=== PATIENT | female | born 1935 | race Two or more races ===

== ENCOUNTER → 2019-05-01 | Outpatient (CLI) | payer MEDICARE, MEDICAID ==
[~2019-05-01] MED LIST: ANAS1TAB7 PO; CLO01T PO; CLOP75TA41 PO; DIL60T PO; DILT40TA PO; DONE10TA40 PO; FENO5TAB PO; FURO20TA3 PO; HYDR-4683 PO; LATA0.0020 EACHEYE; LORA1TAB12 PO; METO-631 PO; MULTTAB61 OR; OMEP20TA PO; PAR20T PO; POM PO; RIVA10TA PO; SENN-58 PO; SIMV10TA73 PO; VALS1TAB57 PO; VANC250PO GT
[2019-05-01 17:17] LABS: Urine Bacteria NONE SEEN /hpf (None Seen); Urine Blood TRACE /uL (Negative); Urine Specific Gravity 1.009 (1.001-1.035); Urine WBC 352 /hpf (0 - 5); Urine WBC Clumps PRESENT /hpf (None Seen)
== END | disposition home or self-care (01) ==
LOC: LAB 16:45
PROVIDERS: ATTEND Specialist
DX: A04.72 Enterocolitis due to Clostridium difficile, not specified as recurrent (principal); I10 Essential (primary) hypertension; Z87.440 Personal history of urinary (tract) infections
CPT/HCPCS: 81001; 87493

== ENCOUNTER 2020-11-26 20:56 | Inpatient (IN) | payer MEDICARE, MEDICAID ==
[~2020-11-26] VITALS: Ht 165.1 cm; Wt 88.0 kg
[~2020-11-26 20:56] MED LIST changes: -CLOP75TA41 PO; +CLOP75TA70 PO; -DONE10TA40 PO; +DONE1TAB88 PO; -HYDR-4683 PO; +HYDR-4833 PO; -LORA1TAB12 PO; +LORA1TAB23 PO; +MULT-1018 OR; -MULTTAB61 OR; +SIMV10TA2 PO; -SIMV10TA73 PO
[2020-11-26 21:46] VITALS: BP 159/83
[2020-11-26] MEDS ORDERED: LORazepam 0.5 MG TAB PO PRN (22:00)
[2020-11-26] MEDS ORDERED: SOD CHL 0.45% 1,000 ML IV SCH (22:00)
[2020-11-26] MEDS ORDERED: IOHEXOL 350 MG/ML 100ML IJ ONE (22:24)
[2020-11-26 22:59] LABS: Basophils # (auto) 0 10 ^3/uL (0-0.2); Basophils % (auto) 0.2 % (0.0-2.0); Eosinophils # (auto) 0.2 10 ^3/uL (0-0.8); Eosinophils % (auto) 2.4 % (0.0-7.0); Hematocrit 34.9 % (36.0-46.0); Hemoglobin 11.8 g/dL (12.2-16.2); Lymphocytes # (auto) 1.9 10 ^3/uL (0.4-5.4); Lymphocytes % (auto) 21.6 % (10.0-50.0); Mean Corpuscular Hemoglobin 31.9 pg (28.0-32.0); Mean Corpuscular Hgb Conc. 33.8 g/dL (32.0-36.0); Mean Corpuscular Volume 94.3 fL (80.0-100.0); Monocytes # (auto) 0.6 10 ^3/uL (0-1.3); Monocytes % (auto) 7.5 % (0.0-12.0); Neutrophils # (auto) 5.9 10 ^3/uL (1.6-8.6); Neutrophils % (auto) 68.3 % (37.0-80.0); Nucleated Red Blood Cells % 0.1 %; Platelet Count (auto) 188 10^3/uL (140-450); Red Cell Distribution Width 14.9 % (11.8-14.3); White Blood Cell 8.7 10^3/uL (4.4-10.8)
[2020-11-26] MEDS ORDERED: PANT40TA2 PO (23:03)
[2020-11-26] MEDS ORDERED: SENN-199 PO (23:03)
[2020-11-26] MEDS ORDERED: TRAZ-181 PO (23:03)
[2020-11-26] MEDS ORDERED: VALS160T53 PO (23:03)
[2020-11-26] MEDS ORDERED: OXY10CRT PO (23:03)
[2020-11-26] MEDS ORDERED: SIMV-8 PO (23:03)
[2020-11-26] MEDS ORDERED: FENO145T27 PO (23:03)
[2020-11-26] MEDS ORDERED: ASPI1TAB19 PO (23:03)
[2020-11-26] MEDS ORDERED: HYDR-4798 PO (23:03)
[2020-11-26] MEDS ORDERED: CLOP75TA28 PO (23:03)
[2020-11-26] MEDS ORDERED: CARV6.2551 PO (23:03)
[2020-11-26 23:07] VITALS: BP 159/83
[2020-11-26 23:20] LABS: Albumin 3.3 g/dL (3.4-5.0); Anion Gap 4 (5-15); Blood Urea Nitrogen 34 mg/dL (7-18); Calcium 8.5 mg/dL (8.5-10.1); Carbon Dioxide 25 mmol/L (21-32); Chloride 111 mmol/L (98-107); Glucose 140 mg/dL (74-106); Potassium 4.6 mmol/L (3.5-5.1); Sodium 140 mmol/L (136-145)
[2020-11-26 23:26] LABS: Alanine Aminotransferase 14 U/L (13-56); Alkaline Phosphatase 77 U/L (45-117); Aspartate Aminotransferase 16 U/L (15-37); BUN/Creatinine Ratio 20.5; Bilirubin, Total 0.2 mg/dL (0.2-1.0); GFR African American 38 mL/min; GFR Non-African American 31 mL/min; Total Protein 7.4 g/dL (6.4-8.2)
[2020-11-26 23:57] VITALS: BP 144/66
[2020-11-27] MEDS ORDERED: SENNA 8.6 MG TAB PO PRN
[2020-11-27] MEDS ORDERED: oxyCODONE ER 10 MG TAB PO PRN
[2020-11-27] MEDS ORDERED: ACETAMINOPHEN 500 MG TAB PO PRN
[2020-11-27] MEDS ORDERED: HYDROmorphone HCL 2 MG/ML VL IV PRN
[2020-11-27] MEDS ORDERED: ENOXAPARIN SOD 60 MG/0.6 ML SYRINGE SC ONE
[2020-11-27] MEDS ORDERED: HYDROcodone-ACET 10/325MG TAB PO PRN
[2020-11-27] MEDS ORDERED: SOD CHL 0.45% 1,000 ML IV SCH (00:45)
[2020-11-27] MEDS ORDERED: MORPHINE SULF INJ 2 MG/ML SYRINGE 1ML IV PRN ×2 (01:00→10:00)
[2020-11-27 05:00] VITALS: BP 139/60
[2020-11-27] MEDS: VALSARTAN 80 MG TAB PO SCH ×2 (06:30→18:00)
[2020-11-27] MEDS ORDERED: OMNIPAQUE ORAL SOLN 500ml 12mg/ml PO ONE (07:37)
[2020-11-27 09:00] VITALS: BP 158/72
[2020-11-27] MEDS ORDERED: NITROGLYCERIN 0.4 MG SL TAB SL PRN (10:00)
[2020-11-27] MEDS ORDERED: [UNRECOGNIZED DRUG - OTHER] PO SCH (10:00)
[2020-11-27] MEDS: PANTOPRAZOLE 40 MG TAB PO SCH (10:00)
[2020-11-27] MEDS: dilTIAZem HCL 60 MG TAB PO SCH ×2 (10:00→21:52)
[2020-11-27] MEDS: PARoxetine 20 MG TAB PO SCH (10:00)
[2020-11-27] MEDS: ARIMIDEX 1 MG PO SCH (10:00)
[2020-11-27] MEDS ORDERED: DILTIAZEM HCL 30 MG PO SCH (10:00)
[2020-11-27] MEDS: CARVEDILOL 3.125 MG PO SCH ×2 (10:33→21:48)
[2020-11-27] MEDS: MULTIPLE VITAMIN TAB PO SCH (10:33)
[2020-11-27] MEDS: CLOPIDOGREL BISULFATE 75 MG TAB PO SCH (10:36)
[2020-11-27] MEDS: cloNIDine HCL 0.1 MG TAB PO SCH ×2 (10:36→21:49)
[2020-11-27] MEDS ORDERED: FENOFIBRATE PO SCH (12:00)
[2020-11-27 13:00] VITALS: BP 119/59
[2020-11-27] MEDS: SOD CHL 0.45% 1,000 ML IV SCH (14:15)
[2020-11-27] MEDS ORDERED: ENOXAPARIN SOD 40 MG/0.4 ML SYRINGE SC SCH (14:15)
[2020-11-27] MEDS ORDERED: LORazepam 0.5 MG TAB PO SCH (14:15)
[2020-11-27 14:46] LABS: BUN/Creatinine Ratio 23.9; Calcium 8.4 mg/dL (8.5-10.1)
[2020-11-27 17:00] VITALS: BP 134/68
[2020-11-27] MEDS: PATIENTS OWN MEDICATION PO SCH (17:30)
[2020-11-27] MEDS: ATORVASTATIN 20 MG TAB PO SCH (18:00)
[2020-11-27] MEDS: LORazepam 0.5 MG TAB PO SCH ×2 (21:50→22:00)
[2020-11-27] MEDS: LATANOPROST 0.005 % OPTH(EYE) SOL 2.5ML EACHEYE SCH (21:51)
[2020-11-27] MEDS: ENOXAPARIN SOD 40 MG/0.4 ML SYRINGE SC SCH (21:52)
[2020-11-27] MEDS: ASPirin-EC 81 mg tab PO SCH (21:53)
[2020-11-27 22:00] VITALS: BP 162/71
[2020-11-27 22:06] LABS: Urine Bacteria NONE SEEN /hpf (None Seen); Urine Blood Negative /uL (Negative); Urine Hyaline Cast FEW /lpf (0 - 2); Urine Specific Gravity 1.017 (1.001-1.035); Urine WBC <1 /hpf (0 - 5)
[2020-11-28 05:00] VITALS: BP 154/66
[2020-11-28 05:39] LABS: Calcium 8.6 mg/dL (8.5-10.1); Potassium 4.2 mmol/L (3.5-5.1)
[2020-11-28 05:40] LABS: BUN/Creatinine Ratio 27.4
[2020-11-28] MEDS: LORazepam 0.5 MG TAB PO SCH ×3 (06:01→22:30)
[2020-11-28] MEDS: VALSARTAN 80 MG TAB PO SCH ×2 (06:02→18:00)
[2020-11-28] MEDS ORDERED: ADENOSINE 75 MG in GIVE UN-DILUTED 0 ML IV STA (08:33)
[2020-11-28] MEDS ORDERED: IODIXANOL 320MG/ML 100ML BTL IV ONE (08:44)
[2020-11-28 09:00] VITALS: BP 131/53
[2020-11-28] MEDS: CARVEDILOL 3.125 MG PO SCH ×2 (10:00→22:34)
[2020-11-28] MEDS: SOD CHL 0.45% 1,000 ML IV SCH ×2 (10:00→22:55)
[2020-11-28] MEDS: PANTOPRAZOLE 40 MG TAB PO SCH (10:00)
[2020-11-28] MEDS: dilTIAZem HCL 60 MG TAB PO SCH ×2 (10:00→22:33)
[2020-11-28] MEDS: PARoxetine 20 MG TAB PO SCH (10:00)
[2020-11-28] MEDS: CLOPIDOGREL BISULFATE 75 MG TAB PO SCH (10:00)
[2020-11-28] MEDS: cloNIDine HCL 0.1 MG TAB PO SCH ×2 (10:00→22:34)
[2020-11-28] MEDS: ARIMIDEX 1 MG PO SCH (10:00)
[2020-11-28] MEDS: ENOXAPARIN SOD 40 MG/0.4 ML SYRINGE SC SCH (10:00)
[2020-11-28] MEDS: MULTIPLE VITAMIN TAB PO SCH (10:00)
[2020-11-28 13:00] VITALS: BP 155/88
[2020-11-28 17:00] VITALS: BP 151/64
[2020-11-28] MEDS: PATIENTS OWN MEDICATION PO SCH (17:00)
[2020-11-28] MEDS: ATORVASTATIN 20 MG TAB PO SCH (18:00)
[2020-11-28 22:00] VITALS: BP 127/63
[2020-11-28] MEDS: LATANOPROST 0.005 % OPTH(EYE) SOL 2.5ML EACHEYE SCH (22:30)
[2020-11-28] MEDS: ASPirin-EC 81 mg tab PO SCH (22:34)
[2020-11-29 05:00] VITALS: BP 112/47
[2020-11-29] MEDS: LORazepam 0.5 MG TAB PO SCH ×2 (05:45→09:26)
[2020-11-29] MEDS: VALSARTAN 80 MG TAB PO SCH ×2 (06:29→18:00)
[2020-11-29 09:00] VITALS: BP 154/69
[2020-11-29] MEDS: dilTIAZem HCL 60 MG TAB PO SCH (09:20)
[2020-11-29] MEDS: CARVEDILOL 3.125 MG PO SCH (09:20)
[2020-11-29] MEDS: PARoxetine 20 MG TAB PO SCH (09:21)
[2020-11-29] MEDS: CLOPIDOGREL BISULFATE 75 MG TAB PO SCH (09:21)
[2020-11-29] MEDS: PANTOPRAZOLE 40 MG TAB PO SCH (09:21)
[2020-11-29] MEDS: MULTIPLE VITAMIN TAB PO SCH (09:21)
[2020-11-29] MEDS: cloNIDine HCL 0.1 MG TAB PO SCH (10:00)
[2020-11-29] MEDS ORDERED: ENOXAPARIN SOD 40 MG/0.4 ML SYRINGE SC SCH (10:00)
[2020-11-29] MEDS: ARIMIDEX 1 MG PO SCH (10:00)
[2020-11-29 13:00] VITALS: BP 144/74
[2020-11-29] MEDS: SOD CHL 0.45% 1,000 ML IV SCH (16:45)
[2020-11-29 17:00] VITALS: BP 161/75
[2020-11-29] MEDS: ATORVASTATIN 20 MG TAB PO SCH (17:18)
[2020-11-29] MEDS: PATIENTS OWN MEDICATION PO SCH (17:18)
[2020-11-29 18:37] LABS: BUN/Creatinine Ratio 19.3; Calcium 8.7 mg/dL (8.5-10.1); Potassium 4.4 mmol/L (3.5-5.1)
[2020-11-29 22:00] VITALS: BP 162/82
== END 2020-11-29 22:40 | disposition home or self-care (01) | DRG 303 ==
LOC: TELE-CENTR 20:56
PROVIDERS: ADMIT Specialist; ATTEND Specialist
PROC: 05HD33Z Insertion of Infusion Device into Right Cephalic Vein, Percutaneous Approach (ICD-10-PCS; principal; 2020-11-28)
DX: I25.119 Atherosclerotic heart disease of native coronary artery with unspecified angina pectoris (principal); N17.9 Acute kidney failure, unspecified; E66.01 Morbid (severe) obesity due to excess calories; Z20.822 Contact with and (suspected) exposure to COVID-19; E78.00 Pure hypercholesterolemia, unspecified; E11.9 Type 2 diabetes mellitus without complications; E86.1 Hypovolemia; E87.8 Other disorders of electrolyte and fluid balance, not elsewhere classified; R32 Unspecified urinary incontinence; Z79.84 Long term (current) use of oral hypoglycemic drugs; Z82.49 Family history of ischemic heart disease and other diseases of the circulatory system; Z85.3 Personal history of malignant neoplasm of breast; Z86.711 Personal history of pulmonary embolism; Z87.440 Personal history of urinary (tract) infections; Z87.891 Personal history of nicotine dependence; Z98.61 Coronary angioplasty status; Z68.28 Body mass index [BMI] 28.0-28.9, adult; I11.0 Hypertensive heart disease with heart failure; N18.9 Chronic kidney disease, unspecified
CPT/HCPCS: 36415; 71045; 71250; 71275; 74176; 78452; 80048; 80053; 80061; 81001; 82150; 83036; 84484; 85025; 87426; 93017; G0378; J0153; Q9967

== ENCOUNTER 2021-01-15 19:16 | Inpatient (IN) | payer MEDICARE, MEDICAID ==
[~2021-01-15] VITALS: Ht 162.6 cm; Wt 79.8 kg
[~2021-01-15 19:16] MED LIST changes: +CARV6.2551 PO; +CLOP75TA28 PO; +FENO145T27 PO; +HYDR-4798 PO; +OXY10CRT PO; +PANT40TA2 PO; +SENN-199 PO; +SIMV-8 PO; +TRAZ-181 PO; +VALS160T53 PO
[2021-01-15] MEDS: SOD CHL 0.45% 1,000 ML IV SCH (21:00)
[2021-01-15] MEDS ORDERED: NITROGLYCERIN 0.4 MG SL TAB SL PRN (21:00)
[2021-01-15] MEDS ORDERED: ALUM & MAG HYDROX-SIMETH LIQ(MAALOX) 30 ML PO PRN (21:00)
[2021-01-15] MEDS ORDERED: MORPHINE SULF INJ 2 MG/ML SYRINGE 1ML IV PRN (21:00)
[2021-01-15 22:00] VITALS: BP 155/74
[2021-01-15] MEDS: dilTIAZem HCL 60 MG TAB PO SCH (22:00)
[2021-01-15] MEDS: PANTOPRAZOLE 40 MG/10 ML VIAL INJ IV SCH (22:00)
[2021-01-15 22:52] VITALS: BP 155/74
[2021-01-15 23:11] VITALS: BP 155/74
[2021-01-15 23:50] LABS: Basophils # (auto) 0 10 ^3/uL (0-0.2); Basophils % (auto) 0.4 % (0.0-2.0); Eosinophils # (auto) 0.3 10 ^3/uL (0-0.8); Eosinophils % (auto) 3.3 % (0.0-7.0); Hematocrit 35.2 % (36.0-46.0); Hemoglobin 11.8 g/dL (12.2-16.2); Lymphocytes # (auto) 2.6 10 ^3/uL (0.4-5.4); Lymphocytes % (auto) 26.7 % (10.0-50.0); Mean Corpuscular Hemoglobin 33.2 pg (28.0-32.0); Mean Corpuscular Hgb Conc. 33.6 g/dL (32.0-36.0); Mean Corpuscular Volume 98.6 fL (80.0-100.0); Monocytes # (auto) 0.7 10 ^3/uL (0-1.3); Monocytes % (auto) 7.6 % (0.0-12.0); Platelet Count (auto) 185 10^3/uL (140-450); Red Blood Cells 3.57 10^6/uL (4.0-5.20); Red Cell Distribution Width 14.4 % (11.8-14.3); White Blood Cell 9.7 10^3/uL (4.4-10.8)
[2021-01-16 00:05] LABS: INR 1.02 (0.9-1.15); Partial Thromboplastin Time 24.2 sec (23.0-31.2)
[2021-01-16 00:08] LABS: Alanine Aminotransferase 11 U/L (13-56); Albumin 3.6 g/dL (3.4-5.0); Anion Gap 10 (5-15); Aspartate Aminotransferase 15 U/L (15-37); BUN/Creatinine Ratio 26.7; Blood Urea Nitrogen 31 mg/dL (7-18); Calcium 8.7 mg/dL (8.5-10.1); Carbon Dioxide 21 mmol/L (21-32); Chloride 106 mmol/L (98-107); GFR African American 57 mL/min; GFR Non-African American 47 mL/min; Glucose 84 mg/dL (74-106); Magnesium 2.3 mg/dL (1.6-2.6); Potassium 4.3 mmol/L (3.5-5.1); Sodium 137 mmol/L (136-145)
[2021-01-16 00:13] LABS: Alkaline Phosphatase 61 U/L (45-117); Bilirubin, Total 0.4 mg/dL (0.2-1.0); Total Protein 7.8 g/dL (6.4-8.2)
[2021-01-16] MEDS ORDERED: MORPHINE SULF INJ 2 MG/ML SYRINGE 1ML IV PRN ×2 (01:45→10:45)
[2021-01-16] MEDS ORDERED: HYDROcodone-ACET 5/325MG TAB PO PRN (01:45)
[2021-01-16 05:00] VITALS: BP 140/70
[2021-01-16] MEDS: dilTIAZem HCL 60 MG TAB PO SCH ×3 (06:14→21:47)
[2021-01-16] MEDS: METOCLOPRAMIDE HCL 10 MG TAB PO SCH ×3 (06:26→17:22)
[2021-01-16 06:31] LABS: Basophils % (auto) 0.6 % (0.0-2.0); Eosinophils # (auto) 0.3 10 ^3/uL (0-0.8); Red Blood Cells 3.34 10^6/uL (4.0-5.20)
[2021-01-16 06:33] LABS: Basophils # (auto) 0.1 10 ^3/uL (0-0.2); Eosinophils % (auto) 3.8 % (0.0-7.0); Hematocrit 32.5 % (36.0-46.0); Hemoglobin 11.3 g/dL (12.2-16.2); Lymphocytes # (auto) 2.6 10 ^3/uL (0.4-5.4); Lymphocytes % (auto) 30.9 % (10.0-50.0); Mean Corpuscular Hgb Conc. 34.9 g/dL (32.0-36.0); Mean Corpuscular Volume 97.4 fL (80.0-100.0); Monocytes # (auto) 0.8 10 ^3/uL (0-1.3); Monocytes % (auto) 8.8 % (0.0-12.0); Neutrophils # (auto) 4.8 10 ^3/uL (1.6-8.6); Neutrophils % (auto) 55.9 % (37.0-80.0); Platelet Count (auto) 186 10^3/uL (140-450); Red Cell Distribution Width 14.4 % (11.8-14.3); White Blood Cell 8.5 10^3/uL (4.4-10.8)
[2021-01-16 06:46] LABS: Chloride 109 mmol/L (98-107); Potassium 4.1 mmol/L (3.5-5.1); Sodium 140 mmol/L (136-145)
[2021-01-16 06:55] LABS: Alanine Aminotransferase 13 U/L (13-56); Albumin 3.3 g/dL (3.4-5.0); Alkaline Phosphatase 54 U/L (45-117); Anion Gap 6 (5-15); Aspartate Aminotransferase 14 U/L (15-37); BUN/Creatinine Ratio 25.2; Bilirubin, Total 0.5 mg/dL (0.2-1.0); Blood Urea Nitrogen 29 mg/dL (7-18); Calcium 8.8 mg/dL (8.5-10.1); Carbon Dioxide 25 mmol/L (21-32); GFR African American 58 mL/min; GFR Non-African American 48 mL/min; Glucose 73 mg/dL (74-106); Total Protein 7.2 g/dL (6.4-8.2)
[2021-01-16 09:00] VITALS: BP 126/65
[2021-01-16] MEDS: PANTOPRAZOLE 40 MG/10 ML VIAL INJ IV SCH (09:44)
[2021-01-16] MEDS: CARVEDILOL 3.125 MG TAB PO SCH ×2 (09:45→21:48)
[2021-01-16] MEDS: VALSARTAN 80 MG TAB PO SCH (09:45)
[2021-01-16] MEDS ORDERED: NITROGLYCERIN 0.4 MG SL TAB SL PRN (10:45)
[2021-01-16 12:41] VITALS: BP 147/70
[2021-01-16] MEDS: ACETAMINOPHEN 500 MG TAB PO PRN (13:59)
[2021-01-16 16:41] VITALS: BP 128/59
[2021-01-16] MEDS: SUCRALFATE 1 GM/10 ML ORAL SUSP PO SCH ×2 (17:22→21:46)
[2021-01-16] MEDS: LORazepam 0.5 MG TAB PO PRN (18:43)
[2021-01-16] MEDS: SOD CHL 0.45% 1,000 ML IV SCH (21:04)
[2021-01-16] MEDS: PANTOPRAZOLE 40 MG TAB PO SCH (21:47)
[2021-01-16] MEDS: VENLAFAXINE HCL 37.5mg XR cap PO SCH (21:47)
[2021-01-16 21:52] VITALS: BP 129/58
[2021-01-17 05:00] VITALS: BP 146/78
[2021-01-17 05:28] LABS: Basophils # (auto) 0 10 ^3/uL (0-0.2); Basophils % (auto) 0.5 % (0.0-2.0); Eosinophils # (auto) 0.3 10 ^3/uL (0-0.8); Eosinophils % (auto) 3.7 % (0.0-7.0); Hematocrit 33.8 % (36.0-46.0); Hemoglobin 11.7 g/dL (12.2-16.2); Lymphocytes # (auto) 2.6 10 ^3/uL (0.4-5.4); Lymphocytes % (auto) 33.4 % (10.0-50.0); Mean Corpuscular Hemoglobin 33.6 pg (28.0-32.0); Mean Corpuscular Hgb Conc. 34.7 g/dL (32.0-36.0); Mean Corpuscular Volume 97.1 fL (80.0-100.0); Monocytes # (auto) 0.8 10 ^3/uL (0-1.3); Monocytes % (auto) 10.2 % (0.0-12.0); Neutrophils # (auto) 4.1 10 ^3/uL (1.6-8.6); Neutrophils % (auto) 52.2 % (37.0-80.0); Nucleated Red Blood Cells % 0.2 %; Platelet Count (auto) 194 10^3/uL (140-450); Red Blood Cells 3.48 10^6/uL (4.0-5.20); White Blood Cell 7.8 10^3/uL (4.4-10.8)
[2021-01-17 05:48] LABS: Potassium 4.3 mmol/L (3.5-5.1)
[2021-01-17 05:59] LABS: Albumin 3.3 g/dL (3.4-5.0); BUN/Creatinine Ratio 22.3; Bilirubin, Total 0.4 mg/dL (0.2-1.0); Calcium 8.7 mg/dL (8.5-10.1); Total Protein 7.2 g/dL (6.4-8.2)
[2021-01-17] MEDS: dilTIAZem HCL 60 MG TAB PO SCH ×3 (06:01→22:11)
[2021-01-17] MEDS: SUCRALFATE 1 GM/10 ML ORAL SUSP PO SCH ×4 (06:39→22:09)
[2021-01-17] MEDS: METOCLOPRAMIDE HCL 10 MG TAB PO SCH ×3 (06:39→18:52)
[2021-01-17] MEDS ORDERED: EZ-GAS II GRANULES (RADIOLOGY USE) PO ONE ×2 (09:09→12:15)
[2021-01-17] MEDS ORDERED: GASTROGRAFIN 120 ML SOL ONE (09:09)
[2021-01-17] MEDS: CARVEDILOL 3.125 MG TAB PO SCH ×2 (09:20→22:10)
[2021-01-17] MEDS: VALSARTAN 80 MG TAB PO SCH (09:21)
[2021-01-17 09:23] VITALS: BP 123/61
[2021-01-17] MEDS: PANTOPRAZOLE 40 MG TAB PO SCH ×2 (11:40→22:10)
[2021-01-17] MEDS: LORazepam 0.5 MG TAB PO PRN (11:53)
[2021-01-17] MEDS ORDERED: EZ PAQUE SUSP 12OZ BTL ONE (12:21)
[2021-01-17 12:59] VITALS: BP 168/70
[2021-01-17 16:42] VITALS: BP 153/64
[2021-01-17] MEDS: SOD CHL 0.45% 1,000 ML IV SCH (18:52)
[2021-01-17 22:00] VITALS: BP 136/63
[2021-01-17] MEDS: VENLAFAXINE HCL 37.5mg XR cap PO SCH (22:10)
[2021-01-17] MEDS: ACETAMINOPHEN 500 MG TAB PO PRN (22:50)
[2021-01-18 05:00] VITALS: BP 138/60
[2021-01-18] MEDS: dilTIAZem HCL 60 MG TAB PO SCH (05:56)
[2021-01-18] MEDS: METOCLOPRAMIDE HCL 10 MG TAB PO SCH (06:51)
[2021-01-18] MEDS: SUCRALFATE 1 GM/10 ML ORAL SUSP PO SCH (06:51)
[2021-01-18] MEDS: SOD CHL 0.45% 1,000 ML IV SCH (07:40)
[2021-01-18] MEDS ORDERED: SUCR1SUS10 PO (08:58)
[2021-01-18 09:00] VITALS: BP 158/70
[2021-01-18] MEDS: CARVEDILOL 3.125 MG TAB PO SCH (09:36)
[2021-01-18] MEDS: VALSARTAN 80 MG TAB PO SCH (09:36)
[2021-01-18] MEDS: PANTOPRAZOLE 40 MG TAB PO SCH (09:37)
== END 2021-01-18 11:35 | disposition home or self-care (01) | DRG 392 ==
LOC: TELE-WESTW 19:16
PROVIDERS: ADMIT Specialist; ATTEND Specialist
DX: K21.9 Gastro-esophageal reflux disease without esophagitis (principal); N17.9 Acute kidney failure, unspecified; E66.2 Morbid (severe) obesity with alveolar hypoventilation; Z20.822 Contact with and (suspected) exposure to COVID-19; I25.10 Atherosclerotic heart disease of native coronary artery without angina pectoris; N18.9 Chronic kidney disease, unspecified; E86.1 Hypovolemia; E78.00 Pure hypercholesterolemia, unspecified; I12.9 Hypertensive chronic kidney disease with stage 1 through stage 4 chronic kidney disease, or unspecified chronic kidney disease; E87.8 Other disorders of electrolyte and fluid balance, not elsewhere classified; M94.0 Chondrocostal junction syndrome [Tietze]; E11.22 Type 2 diabetes mellitus with diabetic chronic kidney disease; R09.02 Hypoxemia; Z79.84 Long term (current) use of oral hypoglycemic drugs; Z82.49 Family history of ischemic heart disease and other diseases of the circulatory system; Z86.711 Personal history of pulmonary embolism; Z86.73 Personal history of transient ischemic attack (TIA), and cerebral infarction without residual deficits; Z87.891 Personal history of nicotine dependence; Z95.5 Presence of coronary angioplasty implant and graft; Z68.30 Body mass index [BMI] 30.0-30.9, adult; Z87.440 Personal history of urinary (tract) infections; Z85.3 Personal history of malignant neoplasm of breast
CPT/HCPCS: 36415; 71045; 74246; 76705; 80053; 83735; 84484; 85025; 85610; 85730; 87426; 92610; C9113; G0378; J1642

== ENCOUNTER 2021-06-13 20:05 | Emergency (ER) | payer MEDICARE, MEDICAID ==
[~2021-06-13] VITALS: Ht 162.6 cm; Wt 77.1 kg
[~2021-06-13 20:05] MED LIST changes: -DIL60T PO; +DILT60TA2 PO; +SUCR1SUS10 PO
[2021-06-13 20:08] VITALS: BP 195/79
[2021-06-13 22:34] LABS: Basophils # (auto) 0 10 ^3/uL (0-0.2); Basophils % (auto) 0.3 % (0.0-2.0); Eosinophils # (auto) 0 10 ^3/uL (0-0.8); Eosinophils % (auto) 0.1 % (0.0-7.0); Hematocrit 35.2 % (36.0-46.0); Hemoglobin 11.6 g/dL (12.2-16.2); Lymphocytes # (auto) 0.7 10 ^3/uL (0.4-5.4); Lymphocytes % (auto) 14.8 % (10.0-50.0); Mean Corpuscular Hemoglobin 30.9 pg (28.0-32.0); Mean Corpuscular Volume 93.6 fL (80.0-100.0); Monocytes # (auto) 0.1 10 ^3/uL (0-1.3); Monocytes % (auto) 2.9 % (0.0-12.0); Neutrophils % (auto) 81.9 % (37.0-80.0); Red Blood Cells 3.76 10^6/uL (4.0-5.20); Red Cell Distribution Width 13.5 % (11.8-14.3); White Blood Cell 4.9 10^3/uL (4.4-10.8)
[2021-06-13 22:44] LABS: Albumin 2.8 g/dL (3.4-5.0); Anion Gap 7 (5-15); Blood Urea Nitrogen 19 mg/dL (7-18); Calcium 8.5 mg/dL (8.5-10.1); Carbon Dioxide 19 mmol/L (21-32); Chloride 112 mmol/L (98-107); Glucose 248 mg/dL (74-106); Potassium 4.6 mmol/L (3.5-5.1); Sodium 138 mmol/L (136-145)
[2021-06-13 22:50] LABS: Alanine Aminotransferase 23 U/L (13-56); Alkaline Phosphatase 76 U/L (45-117); Aspartate Aminotransferase 31 U/L (15-37); BUN/Creatinine Ratio 22.1; Bilirubin, Total 0.3 mg/dL (0.2-1.0); GFR African American 81 mL/min; GFR Non-African American 67 mL/min; Total Protein 7.4 g/dL (6.4-8.2)
== END 2021-06-14 02:55 | disposition left against medical advice (07) ==
LOC: ER 20:05
DX: B34.9 Viral infection, unspecified (principal); T68.XXXA Hypothermia, initial encounter; I10 Essential (primary) hypertension; I25.10 Atherosclerotic heart disease of native coronary artery without angina pectoris; Z20.822 Contact with and (suspected) exposure to COVID-19; X31.XXXA Exposure to excessive natural cold, initial encounter
CPT/HCPCS: 36415; 71045; 80053; 82728; 84484; 85025; 85379; 87426; 93005